=== PATIENT | male | born 1960 | race African-American/Black ===

== ENCOUNTER → 2016-07-03 | Outpatient (CLI) | payer OTHER ==
--- NOTE | 2016-07-03 17:28 | RADRPT ---
PROCEDURE: Right knee radiographs. CLINICAL INDICATION: Right knee pain. TECHNIQUE: Four views. Weight bearing. Frontal, lateral, oblique, and patellar view. COMPARISON: No prior studies are available for comparison. FINDINGS: There is no fracture or dislocation. The soft tissues are normal. There are degenerative changes with osteophytes arising from all 3 joint compartment margins. There is lateral joint compartment narrowing and subarticular sclerosis. There is no lytic or blastic lesion. There is no radiopaque foreign body. IMPRESSION: 1. Moderate degenerative changes of the right knee. 2. No acute abnormality. RPTAT: QQ .Syed Patricio MD, MD Date Time Electronically viewed and signed by .Syed Patricio MD, on 07/03/2016 17:27 .R/
== END | disposition home or self-care (01) ==
LOC: HKI 14:31
PROVIDERS: ATTEND Orthopaedic Surgery
DX: M17.11 Unilateral primary osteoarthritis, right knee (principal); M25.561 Pain in right knee
CPT/HCPCS: 73564; Z7500; G0463

== ENCOUNTER → 2017-01-02 | Outpatient (CLI) | payer OTHER ==
--- NOTE | 2017-01-03 05:14 | HKNOTE ---
DATE OF SERVICE: 01/02/2017 CHIEF COMPLAINT: Right knee pain. HISTORY OF PRESENT ILLNESS: This is a 56-year-old male who has previously seen Dr. Hossein Kendall in 0 06/2016 with right knee pain. He states that the pain has continued. There are no alleviating facto rs. He takes [facility] for pain control. He does not use any assist devices. He does not use any brac es. He denies any groin or back pain. He has no other complaints. RIGHT KNEE EXAMINATION: Neutral alignment, tender over the medial joint line, nontender over the la teral joint line, 0 to 130 degrees range of motion and stable to varus/valgus stress, negative Lachm an, negative anterior drawer, negative posterior drawer. X-RAYS RIGHT KNEE: Four views of the right knee taken in the office demonstrate osteoarthritis of t he knee with lateral joint space narrowing. There is also joint space narrowing of the patellofemor al compartment. The medial compartment joint space is preserved. IMPRESSION: A 56-year-old male with right knee osteoarthritis. PLAN: We will request authorization for right knee Monovisc injection. He will return after author ization for injection of the right knee. Dictated By: NICKY DEAL/JORDY Conf#: [id number] DID#: [id number]
== END | disposition home or self-care (01) ==
LOC: HKI 13:48
PROVIDERS: ATTEND Orthopaedic Surgery Adult Reconstructive Orthopaedic Surgery
DX: M17.11 Unilateral primary osteoarthritis, right knee (principal)
CPT/HCPCS: G0463

== ENCOUNTER → 2017-01-31 | Outpatient (CLI) | payer OTHER ==
--- NOTE | 2017-01-31 15:10 | PN ---
Date/Time of Note Date/Time of Note DATE: 01/31/17 TIME: 15:05 Outpatient Progress Note Chief Complaint Right knee gel injection HPI 56-year-old male presents today for right knee Monovisc injection. Patient was last seen in December 2016. Patient does have degenerative changes with ongoing pain, especially with weightbearing Activities. Denies any falls or injury since he was last seen. Review of Systems Const: No Fever, no chills, no Fatigue, normal appetite, no diaphoresis. Resp: No SOB, no wheezing, no chest pain. CV: No chest pain, no palpitaions, no DUTTA. Physical Exam Blood pressure is 98/57, temperature is 98.1, pulse is 81, respiratory rate is 12, height is 5 foot 8 inches, weight is 175 pounds General Appearance: well-developed, well-nourished, in no acute distress. Right knee: Patient has full range of motion to the right knee today with pain primarily to the lateral compartment. 5/5 strength on resistance. Normal sensory examination to light touch. No observed swelling. Assessment/Plan Problems: (1) Osteoarthritis of right knee * Monovisc injection performed today. After area was marked, area was cleaned with Betadine swab. A 25-gauge needle used to inject 4 cc of 1% lidocaine to achieve local anesthesia. After local anesthesia was achieved, Monovisc injection using 22-gauge needle was performed. No complications with injection. Patient was observed for 5-10 minutes status post injection before discharge. * Patient has discussed directly with Brooke blanca, given patient's age delay of surgery would be optimal. Continue with anti-inflammatories as needed for pain complaints. Daily range of motion and exercise. * Patient may follow-up as needed for repeat evaluation regarding the right knee. DAVIS MELENDREZ PA-C Jan 31, 2017 15:10
--- NOTE | 2017-02-01 06:12 | HKNOTE ---
DATE OF SERVICE: 01/31/2017 CHIEF COMPLAINT: Right knee pain. HISTORY OF PRESENT ILLNESS: This is a 56-year-old male who has history of right knee osteoarthritis . He is here today for a Monovisc injection. He states that his knee continues to have pain and di fficulty performing activities of daily living. . He does not use any assist devices. GAIT: Antalgic gait, reciprocal gait pattern. RIGHT KNEE EXAMINATION: Neutral alignment, tender over the medial joint, nontender over the lateral joint line, . IMPRESSION: A 56-year-old male with right knee osteoarthritis. PLAN: After obtaining verbal and written consent, the right knee was prepped and draped in the usua l sterile fashion. An injection of Monovisc was performed through the lateral portal. There were n o complications. He tolerated the procedure well. He was advised ice and elevate the right knee. He will follow up as needed in the future. Dictated By: NICKY DEAL/JORDY Conf#: [id number] DID#: [id number]
== END | disposition home or self-care (01) ==
LOC: HKI 14:32
PROVIDERS: ATTEND Orthopaedic Surgery Adult Reconstructive Orthopaedic Surgery
DX: M17.11 Unilateral primary osteoarthritis, right knee (principal)
CPT/HCPCS: 20610; J7327; Z7500; G0463

== ENCOUNTER → 2017-09-24 | Outpatient (CLI) | END | disposition home or self-care (01) ==

== ENCOUNTER 2019-01-14 03:37 | Inpatient (IN) | payer OTHER ==
[~2019-01-14] VITALS: Ht 175.3 cm; Wt 81.0 kg
[~2019-01-14 03:37] MED LIST: ACYC800T PO; ATOR10TA65 PO; BICS PO; DOLU1TAB PO; ERGO500013 PO; METF100010 PO; PIOG15TA67 PO
[2019-01-14 08:14] VITALS: BP 125/77; PULSE 95; RESP 18
[2019-01-14] MEDS ORDERED: NACL 0.9% 3 ML SYG IV SCH (09:30)
[2019-01-14] MEDS ORDERED: morphine 2 MG INJ IV PRN ×2 (09:30)
[2019-01-14] MEDS ORDERED: ONDANSETRON 4 MG INJ IV PRN ×2 (09:30)
[2019-01-14] MEDS ORDERED: ACETAMINOPHEN 325 MG TAB PO PRN ×2 (09:30)
[2019-01-14 09:36] VITALS: Ht 175.3 cm; Wt 81.0 kg
[2019-01-14] MEDS ORDERED: GLUCOSE GEL 15 GRAM TUBE BUCCAL PRN (10:00)
[2019-01-14] MEDS ORDERED: DEXTROSE 50% 50 ML SYRINGE IV PRN ×2 (10:00)
[2019-01-14] MEDS ORDERED: GLUCOSE GEL 15 GRAM TUBE PO PRN ×2 (10:00)
[2019-01-14] MEDS ORDERED: GLUCAGON 1 MG INJ IM PRN (10:00)
[2019-01-14] MEDS: SOD CHLORIDE 0.9% 1,000 ML IV SCH ×2 (10:29→19:45)
[2019-01-14 11:54] VITALS: BP 128/85; PULSE 99; RESP 20
[2019-01-14] MEDS: INSULIN ASPART [NOVOLOG] 3 ML PEN SC SCH ×5 (12:59→20:37)
[2019-01-14] MEDS: INSULIN GLARGINE [LANTus] (100 UNITS/ML) SYG SC SCH (12:59)
[2019-01-14] MEDS: ACYCLOVIR 800 MG TAB PO SCH (14:55)
[2019-01-14] MEDS: PATIENT'S OWN MEDICATION PO SCH (14:56)
[2019-01-14 16:48] VITALS: BP 123/75; PULSE 87; RESP 20
[2019-01-14 19:15] VITALS: BP 113/57; PULSE 93; RESP 18
[2019-01-14] MEDS: ATORVASTATIN 40 MG TAB PO SCH (20:30)
[2019-01-15 00:20] VITALS: BP 135/85; PULSE 96; RESP 18
[2019-01-15] MEDS: ACCU-CHEK XX SCH ×2 (01:07→20:54)
[2019-01-15] MEDS ORDERED: AL HYDROX/MG HYDROX/SIMETH 30 ML CUP PO ONE (02:00)
[2019-01-15 03:24] VITALS: BP 127/90; PULSE 106; RESP 18
[2019-01-15] MEDS: SOD CHLORIDE 0.9% 1,000 ML IV SCH ×2 (05:31→15:14)
[2019-01-15] MEDS ORDERED: PANTOPRAZOLE (EC) 40 MG TAB PO SCH (06:00)
[2019-01-15 07:37] VITALS: BP 140/89; PULSE 112; RESP 20
[2019-01-15] MEDS: INSULIN ASPART [NOVOLOG] 3 ML PEN SC SCH ×7 (08:21→20:53)
[2019-01-15] MEDS: PATIENT'S OWN MEDICATION PO SCH (08:23)
[2019-01-15] MEDS: INSULIN GLARGINE [LANTus] (100 UNITS/ML) SYG SC SCH (08:23)
[2019-01-15] MEDS ORDERED: ERGOCALCIFEROL 50,000 UNIT CAP PO SCH (09:00)
[2019-01-15] MEDS ORDERED: ACYCLOVIR 800 MG TAB PO SCH (09:00)
[2019-01-15] MEDS: ACYCLOVIR 800 MG TAB PO SCH (09:53)
[2019-01-15 10:59] VITALS: BP 118/74; PULSE 114; RESP 20
[2019-01-15 15:08] VITALS: BP 127/85; PULSE 110; RESP 20
[2019-01-15] MEDS: LEVOFLOXACIN 250 MG TAB PO SCH (16:21)
[2019-01-15] MEDS: metroNIDAZOLE 500 MG/NS (PMX) 100 ML IVPB SCH ×2 (16:21→20:48)
[2019-01-15 20:27] VITALS: BP 120/74; PULSE 106; RESP 18
[2019-01-15] MEDS: ATORVASTATIN 40 MG TAB PO SCH (20:48)
[2019-01-16 01:00] VITALS: BP 117/77; PULSE 103; RESP 20
[2019-01-16] MEDS: SOD CHLORIDE 0.9% 1,000 ML IV SCH ×3 (02:53→16:47)
[2019-01-16] MEDS: metroNIDAZOLE 500 MG/NS (PMX) 100 ML IVPB SCH ×3 (05:28→21:03)
[2019-01-16] MEDS: LEVOFLOXACIN 250 MG TAB PO SCH (05:29)
[2019-01-16 07:33] VITALS: BP 118/85; PULSE 97; RESP 20
[2019-01-16] MEDS: INSULIN ASPART [NOVOLOG] 3 ML PEN SC SCH ×7 (07:55→20:21)
[2019-01-16] MEDS: ACYCLOVIR 800 MG TAB PO SCH (08:33)
[2019-01-16] MEDS: CITRIC ACID/NA CITRATE 30 ML CUP PO SCH ×3 (08:33→20:15)
[2019-01-16] MEDS: PATIENT'S OWN MEDICATION PO SCH (08:35)
[2019-01-16 11:13] VITALS: BP 122/77; PULSE 99; RESP 20
[2019-01-16 11:48] VITALS: BP 113/79; PULSE 98; RESP 20
[2019-01-16] MEDS: INSULIN GLARGINE [LANTus] (100 UNITS/ML) SYG SC SCH (12:31)
[2019-01-16 14:25] VITALS: BP 117/81; PULSE 93; RESP 18
[2019-01-16 20:03] VITALS: BP 124/67; PULSE 95; RESP 18
[2019-01-16] MEDS: ATORVASTATIN 40 MG TAB PO SCH (20:15)
[2019-01-17] MEDS: ACCU-CHEK XX SCH (02:00)
[2019-01-17 02:48] VITALS: BP 101/61; PULSE 89; RESP 16
[2019-01-17] MEDS: SOD CHLORIDE 0.9% 1,000 ML IV SCH (03:08)
[2019-01-17] MEDS: metroNIDAZOLE 500 MG/NS (PMX) 100 ML IVPB SCH (06:12)
[2019-01-17] MEDS: LEVOFLOXACIN 250 MG TAB PO SCH (06:13)
[2019-01-17 07:32] VITALS: BP 126/75; PULSE 73; RESP 19
[2019-01-17] MEDS: INSULIN ASPART [NOVOLOG] 3 ML PEN SC SCH ×7 (08:00→20:24)
[2019-01-17] MEDS: ACYCLOVIR 800 MG TAB PO SCH (08:12)
[2019-01-17] MEDS: CITRIC ACID/NA CITRATE 30 ML CUP PO SCH ×3 (08:12→20:23)
[2019-01-17] MEDS: INSULIN GLARGINE [LANTus] (100 UNITS/ML) SYG SC SCH (08:14)
[2019-01-17] MEDS: PATIENT'S OWN MEDICATION PO SCH (10:23)
[2019-01-17 13:42] VITALS: BP 110/70; PULSE 86; RESP 19
[2019-01-17 20:03] VITALS: BP 100/66; PULSE 77; RESP 17
[2019-01-17] MEDS: ATORVASTATIN 40 MG TAB PO SCH (20:23)
[2019-01-18] MEDS: ACCU-CHEK XX SCH (01:17)
[2019-01-18 02:31] VITALS: BP 113/62; PULSE 81; RESP 18
[2019-01-18] MEDS: INSULIN ASPART [NOVOLOG] 3 ML PEN SC SCH ×4 (08:00→12:44)
[2019-01-18 08:05] VITALS: BP 98/70; PULSE 67; RESP 16
[2019-01-18] MEDS: CITRIC ACID/NA CITRATE 30 ML CUP PO SCH ×2 (09:30→12:40)
[2019-01-18] MEDS: ACYCLOVIR 800 MG TAB PO SCH (09:30)
[2019-01-18] MEDS: INSULIN GLARGINE [LANTus] (100 UNITS/ML) SYG SC SCH (09:34)
[2019-01-18] MEDS: PATIENT'S OWN MEDICATION PO SCH (09:37)
[2019-01-18 14:56] VITALS: BP 109/72; PULSE 75; RESP 16
== END 2019-01-18 17:05 | disposition home or self-care (01) | DRG 392 ==
LOC: TEL 06:32 → 2NE 01-16 11:40
PROVIDERS: ADMIT Internal Medicine; ATTEND Internal Medicine
DX: K52.9 Noninfective gastroenteritis and colitis, unspecified (principal); N17.9 Acute kidney failure, unspecified; E11.9 Type 2 diabetes mellitus without complications; E86.0 Dehydration; N18.9 Chronic kidney disease, unspecified; Z79.899 Other long term (current) drug therapy
CPT/HCPCS: 74176; 76775; 80048; 80053; 80061; 81001; 81003; 82962; 83036; 83735; 84100; 84155; 85025; 86360; 86674; 87045; 87075; 87205; J1815; J7030